=== PATIENT | male | born 1990 | race Caucasian/White ===

== ENCOUNTER 2022-10-16 12:36 | Emergency (ER) | payer OTHER, SELFPAY ==
[2022-10-16 13:14] VITALS: BP 113/78; PULSE 84; RESP 18; TEMP 37.1; O2SAT 96; BMI 33.0
[2022-10-16 13:42] LABS: Add Manual Diff / Slide Review NO; Basophils Absolute Auto 0 /uL (0-100); Basophils Percent Auto 0.3 % (0-2); Eosinophils Absolute Auto 0 /uL (0-450); Eosinophils Percent Auto 0.5 % (2-4); Hematocrit 47.4 % (41-53); Hemoglobin 16.2 g/dL (13.5-17.5); Lymphocytes Absolute Auto 2300 /uL (1100-4500); Lymphocytes Percent Auto 21.4 % (25-40); Mean Corpuscular HGB Conc 34.2 % (30-36); Mean Corpuscular Hemoglobin 29.8 PG (26-34); Mean Corpuscular Volume 86.9 fL (80-100); Monocytes Absolute Auto 1000 /uL (0-900); Monocytes Percent Auto 9.3 % (3-14); Neutrophils Absolute Auto 7300 /uL (1500-7000); Neutrophils Percent Auto 68.5 % (50-75); Platelet Count 252 X10^3/uL (150-400); Red Blood Cell Count 5.46 X10^6/uL (4.5-5.9); Red Cell Distribution Width 13.3 % (11.6-14.8); White Blood Cell Count 10.6 X10^3/uL (4.5-11.0)
[2022-10-16 13:52] LABS: Alanine Aminotransferase 45 IU/L (<50); Albumin 4.6 g/dL (3.5-5.0); Albumin Globulin Ratio 1.2 (1.0-2.8); Alkaline Phosphatase 86 U/L (38-126); Aspartate Aminotransferase 39 IU/L (17-59); BUN Creatinine Ratio 15.3 (6-22); Bilirubin Total 0.8 mg/dL (0.2-1.3); Blood Urea Nitrogen 13 mg/dL (9-20); Calcium 8.7 mg/dL (8.4-10.2); Carbon Dioxide 22 mmol/L (22-32); Chloride 103 mmol/L (98-107); Estimated Glomerular Filt Rate > 60 mL/min (>60); Globulin 3.9 g/dL (1.7-4.1); Glucose 85 mg/dL (70-100); Lipase 71 U/L (23-300); Potassium 4.7 mmol/L (3.4-5.1); Sodium 136 mmol/L (137-145); Total Protein 8.5 g/dL (6.3-8.2)
[2022-10-16 13:58] LABS: HEMOLYSIS 117 (0-50)
[2022-10-16 14:15] VITALS: BP 119/71; PULSE 89; O2SAT 96
--- NOTE | 2022-10-16 14:26 | DI.CT.S_ITS ---
PROCEDURE: CT ABDOMEN PELVIS W CON INDICATIONS: diverticulitis TECHNIQUE: After the administration of intravenous contrast, axial sections acquired from the lung bases to the pubic symphysis. Coronal and sagittal reformats were performed. For radiation dose reduction, the following was used: automated exposure control, adjustment of mA and/or kV according to patient size. COMPARISON: None. FINDINGS: Image quality: Excellent. Lung bases: Unremarkable. Heart: No significant findings. ABDOMEN: Liver: Very mild diffuse hepatic steatosis. Gallbladder: Unremarkable. Biliary ducts: Unremarkable. Pancreas: Unremarkable. Spleen: Spleen is normal in size. 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 Adrenal Glands: Unremarkable. Kidneys and Ureters: Unremarkable. Stomach and Bowel: Mild diverticulosis. No CT evidence of diverticulitis. Normal appendix. Peritoneum: No abnormal intraperitoneal fluid. No free air. Ventral Wall: No hernias. Abdominal Nodes: No retroperitoneal or mesenteric adenopathy by size criteria. Vessels: Aorta and inferior vena cava are normal in size. PELVIS: Pelvic Organs: Unremarkable. Bladder: Unremarkable. Pelvic Nodes: No enlarged lymph nodes. Miscellaneous: Small fat containing right inguinal hernia. Bones: Unremarkable. IMPRESSION: 1. Mild diverticulosis without evidence of diverticulitis. 2. No evidence acute abdominal process. 3. Very mild diffuse hepatic steatosis. Dictated by: Jasmeet Morris M.D. on 10/16/2022 at 15:19 Approved by: Jasmeet Morris M.D. on 10/16/2022 at 15:24
--- NOTE | 2022-10-16 14:42 | ED.ABDPAIN ---
HPI - Abdominal Pain <BRENDA Macario - Last Filed: 10/16/22 15:44> General Chief Complaint: Abdominal Pain Stated Complaint: stomach pain diarreah sent by [facility] Time Seen by Provider: 10/16/22 12:55 History of Present Illness HPI narrative: This is a 32-year-old male who presents emergency department after going to the [facility] and being evaluated for his lower left quadrant abdominal pain that has been ongoing for the last 6 days. He states that he has been doing clear fluids this week and it improved a little bit but had normal diet yesterday with chicken and some soda which flared up his lower left quadrant pain again. He denies history of abdominal surgery, denies history of diverticulitis. Denies rectal pain, denies urinary changes. Related Data Previous Rx's Medication Instructions Recorded amoxicillin 875 mg-potassium 1 tab PO BID 10 days #20 tabs 10/16/22 clavulanate 125 mg tablet hydrocodone 5 mg-acetaminophen 325 1 tab PO BID PRN pain #10 tabs 10/16/22 mg tablet ibuprofen 600 mg tablet 600 mg PO Q6H PRN fever or pain 10/16/22 #20 tabs polyethylene glycol 3350 17 17 g PO DAILY PRN constipation 10/16/22 gram/dose oral powder (Miralax) #238 grams Allergies Allergy/AdvReac Type Severity Reaction Status Date / Time No Known Drug Allergies Allergy Verified 10/16/22 13:18 Review of Systems <BRENDA Macario - Last Filed: 10/16/22 15:44> Review of Systems ROS Unobtainable: All systems reviewed & are unremarkable except as noted in HPI and below Patient History <BRENDA Macario - Last Filed: 10/16/22 15:44> Social History Smoking Status: Never smoker Smoking Status: Never smoker alcohol intake frequency: holidays/special occasions only Substance Use Type: does not use Exam <BRENDA Macario - Last Filed: 10/16/22 15:44> Narrative Exam Narrative: Reviewed vitals signs and nursing notes. General: Pleasant, sitting upright, in no acute distress, well groomed, afebrile HEENT: symmetrical facial expressions, moist mucous membranes, neck is supple CV: regular rate and rhythm, warm extremities Respiratory: normal work of breathing, without tachypnea or hypoxia. GI: abdomen soft, nondistended, left lower quadrant tenderness to palpation, abdomen is soft in no signs of peritonitis Rectal exam deferred as patient does not have bleeding or rectal pain MSK: moves all extremities, no weakness, normal tone, ambulatory without deficit Skin: brisk capillary refill, without rash or wound Neuro: normal speech and cognition, A&O x3 Initial Vital Signs Initial Vital Signs: Vital Signs Temperature 98.7 F 10/16/22 13:14 Pulse Rate 84 10/16/22 13:14 Respiratory Rate 18 10/16/22 13:14 Blood Pressure 113/78 10/16/22 13:14 Pulse Oximetry 96 10/16/22 13:14 Oxygen Delivery Method Room Air 10/16/22 13:14 <Darcie Cornejo DO - Last Filed: 10/17/22 08:11> Initial Vital Signs Initial Vital Signs: Vital Signs Temperature 98.7 F 10/16/22 13:14 Pulse Rate 84 10/16/22 13:14 Respiratory Rate 18 10/16/22 13:14 Blood Pressure 113/78 10/16/22 13:14 Pulse Oximetry 96 10/16/22 13:14 Oxygen Delivery Method Room Air 10/16/22 13:14 Course <BRENDA Macario - Last Filed: 10/16/22 15:44> Orders Ordered: Discontinued Medications Amoxicillin/Clavulanate Potassium (Amoxicillin/Clav 875/125 Mg) 1 tab PO NOW ONE Stop: 10/16/22 14:28 Last Admin: 10/16/22 15:00 Dose: 1 tab Documented By: RUSTY Hydromorphone HCl (Hydromorphone 0.5 Mg Inj) 0.5 mg IV NOW ONE Stop: 10/16/22 14:27 Last Admin: 10/16/22 14:58 Dose: Not Given Documented By: RUSTY Sodium Chloride (Normal Saline 0.9%) 1,000 mls @ 1,000 mls/hr IV BOLUS ONE Stop: 10/16/22 15:25 Last Admin: 10/16/22 14:58 Dose: Not Given Documented By: RUSTY Ketorolac Tromethamine (Ketorolac 30 Mg/Ml Vial) 15 mg IV NOW ONE Stop: 10/16/22 14:27 Last Admin: 10/16/22 15:00 Dose: 15 mg Documented By: RUSTY Ondansetron HCl (Ondansetron 4 Mg Odt) 4 mg PO NOW PRN PRN Reason: Nausea And Vomiting Ondansetron HCl (Ondansetron 4 Mg/2 Ml Inj) 4 mg IV NOW PRN PRN Reason: Nausea And Vomiting Last Admin: 10/16/22 15:00 Dose: 4 mg Documented By: RUSTY Vital Signs Vital signs: Vital Signs - 8 hr 10/16/22 13:14 10/16/22 14:15 10/16/22 14:15 Temperature 98.7 F Pulse Rate 84 89 Respiratory Rate 18 Blood Pressure 113/78 119/71 Pulse Oximetry 96 96 Oxygen Delivery Method Room Air <Darcie Cornejo DO - Last Filed: 10/17/22 08:11> Orders Ordered: Discontinued Medications Amoxicillin/Clavulanate Potassium (Amoxicillin/Clav 875/125 Mg) 1 tab PO NOW ONE Stop: 10/16/22 14:28 Last Admin: 10/16/22 15:00 Dose: 1 tab Documented By: RUSTY Hydromorphone HCl (Hydromorphone 0.5 Mg Inj) 0.5 mg IV NOW ONE Stop: 10/16/22 14:27 Last Admin: 10/16/22 14:58 Dose: Not Given Documented By: RUSTY Sodium Chloride (Normal Saline 0.9%) 1,000 mls @ 1,000 mls/hr IV BOLUS ONE Stop: 10/16/22 15:25 Last Admin: 10/16/22 14:58 Dose: Not Given Documented By: RUSTY Ketorolac Tromethamine (Ketorolac 30 Mg/Ml Vial) 15 mg IV NOW ONE Stop: 10/16/22 14:27 Last Admin: 10/16/22 15:00 Dose: 15 mg Documented By: RUSTY Ondansetron HCl (Ondansetron 4 Mg Odt) 4 mg PO NOW PRN PRN Reason: Nausea And Vomiting Ondansetron HCl (Ondansetron 4 Mg/2 Ml Inj) 4 mg IV NOW PRN PRN Reason: Nausea And Vomiting Last Admin: 10/16/22 15:00 Dose: 4 mg Documented By: RUSTY Vital Signs Vital signs: Vital Signs - 8 hr 10/16/22 13:14 10/16/22 14:15 10/16/22 14:15 Temperature 98.7 F Pulse Rate 84 89 Respiratory Rate 18 Blood Pressure 113/78 119/71 Pulse Oximetry 96 96 Oxygen Delivery Method Room Air MDM - Abdominal Pain <SHELBY MacarioP - Last Filed: 10/16/22 15:44> Lab Data 10/16/22 13:29 10/16/22 13:29 Labs: Lab Results 10/16/22 10/16/22 10/16/22 Range/Units 13:29 13:29 14:31 WBC 10.6 (4.5-11.0) X10^3/uL RBC 5.46 (4.5-5.9) X10^6/uL Hgb 16.2 (13.5-17.5) g/dL Hct 47.4 (41-53) % MCV 86.9 (80-100) fL MCH 29.8 (26-34) PG MCHC 34.2 (30-36) % RDW 13.3 (11.6-14.8) % Plt Count 252 (150-400) X10^3/uL Neut % (Auto) 68.5 (50-75) % Lymph % (Auto) 21.4 L (25-40) % [place] % (Auto) 9.3 (3-14) % Eos % (Auto) 0.5 L (2-4) % Baso % (Auto) 0.3 (0-2) % Neut # (Auto) 7300 H (8476-8597) /uL Lymph # (Auto) 2300 (8637-1242) /uL [place] # (Auto) 1000 H (0-900) /uL Eos # (Auto) 0 (0-450) /uL Baso # (Auto) 0 (0-100) /uL Sodium 136 L (137-145) mmol/L Potassium 4.7 (3.4-5.1) mmol/L Chloride 103 (98-107) mmol/L Carbon Dioxide 22 (22-32) mmol/L BUN 13 (9-20) mg/dL Creatinine 0.85 (0.66-1.25) mg/dL Estimated GFR > 60 (>60) mL/min BUN/Creatinine Ratio 15.3 (6-22) Glucose 85 (70-100) mg/dL Calcium 8.7 (8.4-10.2) mg/dL Total Bilirubin 0.8 (0.2-1.3) mg/dL AST 39 (17-59) IU/L ALT 45 (<50) IU/L Alkaline Phosphatase 86 (38-126) U/L Total Protein 8.5 H (6.3-8.2) g/dL Albumin 4.6 (3.5-5.0) g/dL Globulin 3.9 (1.7-4.1) g/dL Albumin/Globulin Ratio 1.2 (1.0-2.8) Lipase 71 (23-300) U/L Urine Color Urine Appearance Urine pH (4.5-8.0) Ur Specific [place] (1.000-1.035) Urine Protein (Negative) Urine Glucose (UA) (Negative) g/dL Urine Ketones (NEGATIVE) Urine Occult Blood (Negative) Urine Nitrate (Negative) Urine Bilirubin (NEGATIVE) Urine Urobilinogen (0.2) E.U./dL Ur Leukocyte Esterase (NEGATIVE) Urine RBC Cancelled Urine WBC Cancelled Ur Squamous Epith Cells Cancelled Ur Transition Epith Cell Cancelled Ur Renal Epithelial Cell Cancelled Calcium Oxalate Crystal Cancelled Uric Acid Crystals Cancelled Triple Phos Crystals Cancelled Other Crystals Cancelled Amorphous Sediment Cancelled Urine Bacteria Cancelled Hyaline Casts Cancelled Granular Casts Cancelled RBC Casts Cancelled WBC Casts Cancelled Other Casts Cancelled Urine Mucus Cancelled Urine Trichomonas Cancelled Urine Yeast Cancelled Urine Sperm Cancelled Ur Culture Indicated? Cancelled Micro UA Comment Cancelled 10/16/22 Range/Units 14:31 WBC (4.5-11.0) X10^3/uL RBC (4.5-5.9) X10^6/uL Hgb (13.5-17.5) g/dL Hct (41-53) % MCV (80-100) fL MCH (26-34) PG MCHC (30-36) % RDW (11.6-14.8) % Plt Count (150-400) X10^3/uL Neut % (Auto) (50-75) % Lymph % (Auto) (25-40) % [place] % (Auto) (3-14) % Eos % (Auto) (2-4) % Baso % (Auto) (0-2) % Neut # (Auto) (1888-1665) /uL Lymph # (Auto) (3606-9126) /uL [place] # (Auto) (0-900) /uL Eos # (Auto) (0-450) /uL Baso # (Auto) (0-100) /uL Sodium (137-145) mmol/L Potassium (3.4-5.1) mmol/L Chloride (98-107) mmol/L Carbon Dioxide (22-32) mmol/L BUN (9-20) mg/dL Creatinine (0.66-1.25) mg/dL Estimated GFR (>60) mL/min BUN/Creatinine Ratio (6-22) Glucose (70-100) mg/dL Calcium (8.4-10.2) mg/dL Total Bilirubin (0.2-1.3) mg/dL AST (17-59) IU/L ALT (<50) IU/L Alkaline Phosphatase (38-126) U/L Total Protein (6.3-8.2) g/dL Albumin (3.5-5.0) g/dL Globulin (1.7-4.1) g/dL Albumin/Globulin Ratio (1.0-2.8) Lipase (23-300) U/L Urine Color Yellow Urine Appearance Clear Urine pH 6.5 (4.5-8.0) Ur Specific [place] 1.025 (1.000-1.035) Urine Protein Trace H (Negative) Urine Glucose (UA) Negative (Negative) g/dL Urine Ketones Negative (NEGATIVE) Urine Occult Blood Negative (Negative) Urine Nitrate Negative (Negative) Urine Bilirubin Negative (NEGATIVE) Urine Urobilinogen 0.2 (0.2) E.U./dL Ur Leukocyte Esterase Negative (NEGATIVE) Urine RBC 1-5/hpf Urine WBC 1-5/hpf Ur Squamous Epith Cells Ur Transition Epith Cell Ur Renal Epithelial Cell Calcium Oxalate Crystal Uric Acid Crystals Triple Phos Crystals Other Crystals 2+ amorphous Amorphous Sediment Urine Bacteria None seen Hyaline Casts Granular Casts RBC Casts WBC Casts Other Casts Urine Mucus Urine Trichomonas Urine Yeast Urine Sperm Ur Culture Indicated? Cult not indicated Micro UA Comment Point of care testing: Urine Dip Bedside Urine Glucose Negative Bedside Urine Bilirubin - Negative Bedside Urine Ketone - Negative Urine Specific [place] 1.025 Bedside Urine Occult Blood - Negative Bedside Urine pH 6.0 Bedside Urine Protein +/- 15 Bedside Urine Urobilinogen - Negative Bedside Urine Nitrite - Negative Bedside Urine Leukocytes - Negative Esterase Imaging Data CT scan - abdomen/pelvis: Radiologist's Impression: PROCEDURE:? CT ABDOMEN PELVIS W CON ? INDICATIONS:? diverticulitis ? TECHNIQUE:? After the administration of intravenous contrast, axial sections acquired from the lung bases to the pubic symphysis.? Coronal and sagittal reformats were performed.? For radiation dose reduction, the following was used:? automated exposure control, adjustment of mA and/or kV according to patient size.? ? COMPARISON:? None. ? FINDINGS:? Image quality:? Excellent.? ? Lung bases:? Unremarkable. Heart:? No significant findings. ? ABDOMEN: Liver:? Very mild diffuse hepatic steatosis.? ? Gallbladder:? Unremarkable.? ? Biliary ducts:? Unremarkable.? ? Pancreas:? Unremarkable.? ? Spleen:? Spleen is normal in size.? 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 3 separate splenules are identified.? ? Adrenal Glands:? Unremarkable.? ? Kidneys and Ureters:? Unremarkable.? ? ? Stomach and Bowel:? Mild diverticulosis.? No CT evidence of diverticulitis.? Normal appendix. Peritoneum:? No abnormal intraperitoneal fluid.? No free air.? ? Ventral Wall: ? No hernias.? Abdominal Nodes:? No retroperitoneal or mesenteric adenopathy by size criteria.? Vessels:? Aorta and inferior vena cava are normal in size.? ? PELVIS: Pelvic Organs:? Unremarkable.? ? Bladder:? Unremarkable.? ? Pelvic Nodes: No enlarged lymph nodes.? Miscellaneous:? Small fat containing right inguinal hernia. ? Bones:? Unremarkable.? IMPRESSION:? ? 1. Mild diverticulosis without evidence of diverticulitis. ? 2. No evidence acute abdominal process. ? 3. Very mild diffuse hepatic steatosis.? ? ? Dictated by: Jasmeet Morris M.D. on 10/16/2022 at 15:19 ? ? Approved by: Jasmeet Morris M.D. on 10/16/2022 at 15:24 ? MDM Narrative Medical decision making narrative: Chief Complaint: Independent historian: Patient Differential diagnoses include but are not limited to: acute viral process, gastroenteritis, perforated viscus, appendicitis, colitis, diverticulitis, IBD/IBS, intestinal ischemia, obstructive uropathy, acute cystitis, pyelonephritis Doubt atypical ACS. No peritoneal signs on abdominal exam. I have independently reviewed the patient's vital signs and nursing notes as well as prior records if available. Pertinent lab findings reviewed: No leukocytosis although his WBC is 10.6 with mildly elevated neutrophils, no gross electrolyte abnormalities, liver enzymes are not elevated, normal lipase, UA is aseptic Pertinent Imaging reviewed: CT abdomen pelvis does not show evidence of diverticulitis but does call out his diverticulosis. No evidence of acute abdominal process and mild diffuse hepatic steatosis. Patient has had symptoms for the last 6 days, was tender to his left lower quadrant, CRP was elevated at [place] today and patient has been doing a clear liquid diet most of the week until yesterday. I suspect that his inflammation has gone down and it does not show up on CT but we will treat this for diverticulitis based on clinical exam Course of care: Serial abdominal exam without increase in abdominal pain. Patient understands to start clear liquid diet for the next 24-48 hours and progress his diet slowly as tolerated with time to allow his infection to calm down. He was given contact information for [facility] to follow-up for colonoscopy when healed. Social considerations that may affect disposition: none Questions are addressed and there is agreement with the plan and for follow-up. Patient is appropriate for outpatient management. MIPS: This encounter doesn't have any diagnosis' associated with MIPS criteria. <Darcie Cornejo, DO - Last Filed: 10/17/22 08:11> Lab Data Labs: Lab Results 10/16/22 10/16/22 10/16/22 Range/Units 13:29 13:29 14:31 WBC 10.6 (4.5-11.0) X10^3/uL RBC 5.46 (4.5-5.9) X10^6/uL Hgb 16.2 (13.5-17.5) g/dL Hct 47.4 (41-53) % MCV 86.9 (80-100) fL MCH 29.8 (26-34) PG MCHC 34.2 (30-36) % RDW 13.3 (11.6-14.8) % Plt Count 252 (150-400) X10^3/uL Neut % (Auto) 68.5 (50-75) % Lymph % (Auto) 21.4 L (25-40) % [place] % (Auto) 9.3 (3-14) % Eos % (Auto) 0.5 L (2-4) % Baso % (Auto) 0.3 (0-2) % Neut # (Auto) 7300 H (8056-3061) /uL Lymph # (Auto) 2300 (6591-7204) /uL [place] # (Auto) 1000 H (0-900) /uL Eos # (Auto) 0 (0-450) /uL Baso # (Auto) 0 (0-100) /uL Sodium 136 L (137-145) mmol/L Potassium 4.7 (3.4-5.1) mmol/L Chloride 103 (98-107) mmol/L Carbon Dioxide 22 (22-32) mmol/L BUN 13 (9-20) mg/dL Creatinine 0.85 (0.66-1.25) mg/dL Estimated GFR > 60 (>60) mL/min BUN/Creatinine Ratio 15.3 (6-22) Glucose 85 (70-100) mg/dL Calcium 8.7 (8.4-10.2) mg/dL Total Bilirubin 0.8 (0.2-1.3) mg/dL AST 39 (17-59) IU/L ALT 45 (<50) IU/L Alkaline Phosphatase 86 (38-126) U/L Total Protein 8.5 H (6.3-8.2) g/dL Albumin 4.6 (3.5-5.0) g/dL Globulin 3.9 (1.7-4.1) g/dL Albumin/Globulin Ratio 1.2 (1.0-2.8) Lipase 71 (23-300) U/L Urine Color Urine Appearance Urine pH (4.5-8.0) Ur Specific [place] (1.000-1.035) Urine Protein (Negative) Urine Glucose (UA) (Negative) g/dL Urine Ketones (NEGATIVE) Urine Occult Blood (Negative) Urine Nitrate (Negative) Urine Bilirubin (NEGATIVE) Urine Urobilinogen (0.2) E.U./dL Ur Leukocyte Esterase (NEGATIVE) Urine RBC Cancelled Urine WBC Cancelled Ur Squamous Epith Cells Cancelled Ur Transition Epith Cell Cancelled Ur Renal Epithelial Cell Cancelled Calcium Oxalate Crystal Cancelled Uric Acid Crystals Cancelled Triple Phos Crystals Cancelled Other Crystals Cancelled Amorphous Sediment Cancelled Urine Bacteria Cancelled Hyaline Casts Cancelled Granular Casts Cancelled RBC Casts Cancelled WBC Casts Cancelled Other Casts Cancelled Urine Mucus Cancelled Urine Trichomonas Cancelled Urine Yeast Cancelled Urine Sperm Cancelled Ur Culture Indicated? Cancelled Micro UA Comment Cancelled 10/16/22 Range/Units 14:31 WBC (4.5-11.0) X10^3/uL RBC (4.5-5.9) X10^6/uL Hgb (13.5-17.5) g/dL Hct (41-53) % MCV (80-100) fL MCH (26-34) PG MCHC (30-36) % RDW (11.6-14.8) % Plt Count (150-400) X10^3/uL Neut % (Auto) (50-75) % Lymph % (Auto) (25-40) % [place] % (Auto) (3-14) % Eos % (Auto) (2-4) % Baso % (Auto) (0-2) % Neut # (Auto) (0189-1878) /uL Lymph # (Auto) (5932-5468) /uL [place] # (Auto) (0-900) /uL Eos # (Auto) (0-450) /uL Baso # (Auto) (0-100) /uL Sodium (137-145) mmol/L Potassium (3.4-5.1) mmol/L Chloride (98-107) mmol/L Carbon Dioxide (22-32) mmol/L BUN (9-20) mg/dL Creatinine (0.66-1.25) mg/dL Estimated GFR (>60) mL/min BUN/Creatinine Ratio (6-22) Glucose (70-100) mg/dL Calcium (8.4-10.2) mg/dL Total Bilirubin (0.2-1.3) mg/dL AST (17-59) IU/L ALT (<50) IU/L Alkaline Phosphatase (38-126) U/L Total Protein (6.3-8.2) g/dL Albumin (3.5-5.0) g/dL Globulin (1.7-4.1) g/dL Albumin/Globulin Ratio (1.0-2.8) Lipase (23-300) U/L Urine Color Yellow Urine Appearance Clear Urine pH 6.5 (4.5-8.0) Ur Specific [place] 1.025 (1.000-1.035) Urine Protein Trace H (Negative) Urine Glucose (UA) Negative (Negative) g/dL Urine Ketones Negative (NEGATIVE) Urine Occult Blood Negative (Negative) Urine Nitrate Negative (Negative) Urine Bilirubin Negative (NEGATIVE) Urine Urobilinogen 0.2 (0.2) E.U./dL Ur Leukocyte Esterase Negative (NEGATIVE) Urine RBC 1-5/hpf Urine WBC 1-5/hpf Ur Squamous Epith Cells Ur Transition Epith Cell Ur Renal Epithelial Cell Calcium Oxalate Crystal Uric Acid Crystals Triple Phos Crystals Other Crystals 2+ amorphous Amorphous Sediment Urine Bacteria None seen Hyaline Casts Granular Casts RBC Casts WBC Casts Other Casts Urine Mucus Urine Trichomonas Urine Yeast Urine Sperm Ur Culture Indicated? Cult not indicated Micro UA Comment Point of care testing: Urine Dip Bedside Urine Glucose Negative Bedside Urine Bilirubin - Negative Bedside Urine Ketone - Negative Urine Specific [place] 1.025 Bedside Urine Occult Blood - Negative Bedside Urine pH 6.0 Bedside Urine Protein +/- 15 Bedside Urine Urobilinogen - Negative Bedside Urine Nitrite - Negative Bedside Urine Leukocytes - Negative Esterase Discharge Plan Departure Patient Disposition: Home Clinical Impression: Diverticulitis, Fatty liver Instructions: Diverticulitis Activity Restrictions/Additional Instructions: *You have been diagnosed with diverticulitis. The CT did not show anything significant regarding inflammation but your story is concerning for diverticulitis since you have history of diverticulosis evident on your CT, we will treat this as diverticulitis. Please continue with clear fluids today and tomorrow and progress your diet gently with low-fat and low fiber content. Your lab work overall is very reassuring. Your electrolytes are within normal ranges. I have given you 10 days of Augmentin to treat this. You may get away with 7 days of treatment if you are symptom-free at that point. Please use a pain pill-hydrocodone as needed for severe pain, this will cause constipation so ensure you have had some MiraLax before hand. Use ibuprofen every 6 hours with a little bit of food and something to drink for your pain. Return to emergency department for any severe pain or change in your pain, fever chills or worsening. *What to do: *Please continue to take your regular medications as directed. [x ] New medication prescriptions sent to your pharmacy: [facility] [place] [ ] New medication written as a paper prescription [ ] No new medications given *Please follow up with your primary care provider in 2-3 days, call for an appointment. Let them know you were seen in the Emergency Department and that we asked that you be seen for follow-up. We will electronically transmit a record of today's note if your PCP is in our system *If you do not have a primary care provider please contact [phone] to establish care with one of the [facility] primary care providers. *Return to Emergency Department if you should have any new, worsening, or concerning symptoms, such as [fever greater than 101F, chills, worsening pain, persistent vomiting or other bothersome symptoms]. Prescriptions: New amoxicillin-pot clavulanate 875-125 mg tablet 1 tab PO BID 10 Days Qty: 20 0RF polyethylene glycol 3350 [Miralax] 17 gram/dose powder 17 g PO DAILY PRN (Reason: constipation) Qty: 238 0RF hydrocodone-acetaminophen 5-325 mg tablet 1 tab PO BID PRN (Reason: pain) Qty: 10 0RF ibuprofen 600 mg tablet 600 mg PO Q6H PRN (Reason: fever or pain) Qty: 20 0RF Referrals: [facility] [Provider Group] (for colonoscopy as needed) Stand Alone Forms: Patient Portal/API, Work Release Note <Darcie Cornejo, DO - Last Filed: 10/17/22 08:11> Cosign ED Attending Sherleyature Attestation: I was immediately available in the department for consultation.
[2022-10-16] MEDS: AMOXICILLIN/CLAV 875/125 MG 1 TAB PO (15:00)
[2022-10-16] MEDS: KETOROLAC 30 MG/ML VIAL 15 MG IV (15:00)
[2022-10-16] MEDS: ONDANSETRON 4 MG/2 ML INJ IV (15:00)
[2022-10-16 15:16] LABS: Appearance Urine UA CLEAR; Bilirubin Urine UA NEGATIVE (NEGATIVE); Color Urine UA YELLOW; Glucose Urine UA NEGATIVE (Negative); Ketones Urine UA NEGATIVE (NEGATIVE); Leukocyte Esterase Urine UA NEGATIVE (NEGATIVE); Nitrite Urine UA NEGATIVE (Negative); Occult Blood Urine UA NEGATIVE (Negative); Protein Urine UA TRACE (Negative); Specific Gravity Urine UA 1.025 (1.000-1.035); Urobilinogen Urine UA 0.2 E.U./dL (0.2); pH Urine UA 6.5 (4.5-8.0)
[2022-10-16 15:22] LABS: Bacteria Urine None Seen; Culture Indicated Urine Cult Not Indicated; RBC Urine 1-5/HPF (0-5/HPF); WBC Urine 1-5/HPF (0-5/HPF)
== END 2022-10-16 15:56 | disposition home or self-care (01) ==
PROVIDERS: Emergency Medicine; Emergency Provider Nurse Practitioner Critical Care Medicine
DX: K57.92 Diverticulitis of intestine, part unspecified, without perforation or abscess without bleeding (principal); K76.0 Fatty (change of) liver, not elsewhere classified
CPT/HCPCS: 36415; 74177; 80053; 81001; 81003; 83690; 85025; 96374; 96375; 99284; J1885; J2405; Q9967